=== PATIENT | male | born 1950 | race Caucasian/White ===

== ENCOUNTER 2017-03-29 10:55 | Emergency (ER) | payer MEDICARE ==
[~2017-03-29] VITALS: Ht 175.3 cm; Wt 95.3 kg
[2017-03-29] MEDS ORDERED: LIPITOR 20 MG T20 M1 PO (11:10)
[2017-03-29] MEDS ORDERED: LISINOPRIL20 MG PO (11:10)
[2017-03-29] MEDS ORDERED: SINGULAIR 10 MG10 M1 PO (11:11)
[2017-03-29 11:34] LABS: ABSOLUTE BASOPHILS 0.1 thou/uL (0.0-0.2); ABSOLUTE NEUTROPHILS 2.6 thou/uL (1.6-8.1); BASOPHILS 1.6 %; EOSINOPHILS 0.6 %; HEMOGLOBIN 14.7 gm/dL (14.0-18.0); LYMPHOCYTES 35.1 %; MCH 31.5 pg (26.0-34.0); MCHC 32.7 g/dL (28.0-37.0); MCV 96.3 fL (80.0-100.0); MONOCYTES 17.9 %; NUCLEATED RBCS 0 /100WBC; PLATELET COUNT* 148 thou/uL (150-400); POLYS 44.8 %; RBC 4.67 mil/uL (4.50-6.00); RDW-CV 14.6 % (10.5-14.5); WBC 5.7 thou/uL (4.0-11.0)
[2017-03-29 11:42] LABS: ANION GAP 11 mmol/L (7-16); BUN 22 mg/dL (7-18); CALCIUM 7.8 mg/dL (8.5-10.1); CHLORIDE 103 mmol/L (98-107); CO2 27 mmol/L (21-32); CREATININE 1.3 mg/dL (0.6-1.3); GLUCOSE 96 mg/dL (70-99); POTASSIUM 3.4 mmol/L (3.5-5.1); SODIUM 141 mmol/L (136-145)
[2017-03-29 11:52] LABS: ALBUMIN 3.5 g/dL (3.4-5.0); ALKALINE PHOSPHATASE 54 U/L (46-116); SGOT 29 U/L (15-37); SGPT 31 U/L (30-65); TOTAL BILIRUBIN 0.3 mg/dL (<0.1-1.0); TROPONIN-I LEVEL <0.06 ng/mL (<0.06)
[2017-03-29 12:00] LABS: INFLUENZA A ANTIGEN None Detected (None Detect)
[2017-03-29] MEDS ORDERED: OSELB75 PO (12:03)
[2017-03-29 12:38] VITALS: BP 115/73
--- NOTE | 2017-03-30 13:09 | EKG ---
[place] [address] ELECTROCARDIOGRAM REPORT Name: THOM ALAN Room: [facility]#: [id number] Admission: 03/29/17 Attend Phys: Discharge: 03/29/17 Date of : 52 Report #: [id number] THIS REPORT FOR: //name// [facility] ED Test Date: 2017-03-29 Test Time: 11:37:51 Pat Name: THOM ALAN Department: Room: Gender: M Overlocker: [place] : 1950 Requested By: Hermelindo Marie Order Number: [id number] MD: Mario Tsang Measurements Intervals [place] Rate: 80 P: 38 DC: 144 QRS: 21 QRSD: 85 T: 64 QT: 393 QTc: 454 Interpretive Statements Sinus rhythm RSR' in V1 or V2, right VCD or RVH No previous ECG available for comparison Electronically Signed On 03-30-2017 13:09:10 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
== END 2017-03-29 12:38 | disposition home or self-care (01) ==
LOC: M.ERS 10:55
PROVIDERS: Emergency Medicine Emergency Medical Services
DX: J10.1 Influenza due to other identified influenza virus with other respiratory manifestations (principal); I10 Essential (primary) hypertension; F32.9 Major depressive disorder, single episode, unspecified; F17.210 Nicotine dependence, cigarettes, uncomplicated; Z98.890 Other specified postprocedural states; Z88.2 Allergy status to sulfonamides